=== PATIENT | male | born 2000 | race Caucasian/White ===

== ENCOUNTER 2022-12-24 15:43 | Emergency (ER) | payer MEDICAID, SELFPAY ==
[2022-12-24 15:51] VITALS: BP 114/59; PULSE 66; RESP 16; TEMP 37.3; O2SAT 100
--- NOTE | 2022-12-24 16:14 | ED.URI ---
HPI - URI/Sore Throat General Chief Complaint: Upper Respiratory Infection Stated Complaint: Sinus Congestion Time Seen by Provider: 12/24/22 16:14 Source: patient Mode of arrival: ambulatory Limitations: no limitations History of Present Illness HPI Narrative: 22-year-old male presents with complaint of nasal and sinus congestion. Reports some mild sinus pressure. Afebrile. No other symptoms today. Patient requesting work note. All systems reviewed and negative except as noted above. Related Data Home Medications Medication Instructions Recorded Confirmed dextroamphetamine-amphetamine 15 12/24/22 12/24/22 mg tablet Allergies Allergy/AdvReac Type Severity Reaction Status Date / Time No Known Allergies Allergy Verified 12/24/22 16:03 Review of Systems Review of Systems: CONSTITUTIONAL: Denies fever, chills, or sweats. EYES: Denies visual changes, redness, or discharge. ENT: Reports rhinorrhea, congestion. Denies sore throat, or otalgia. CARDIOVASCULAR: Denies chest pain, palpitations, or edema. RESPIRATORY: Denies cough or dyspnea. GASTROINTESTINAL: Denies abdominal pain, nausea, vomiting, or diarrhea. GENITOURINARY: Denies dysuria or hematuria. SKIN: Denies rash or itching. MUSCULOSKELETAL: Denies back pain, joint pain, or myalgia. NEUROLOGIC: Denies headache, numbness, or weakness. PSYCHIATRIC: Denies anxiety or depression. All other systems reviewed are negative, except as documented in HPI. PMFSH Comments At time of signature, agree with nursing past medical, surgical, social and family history. There is no relevant family history pertinent to the presenting complaint. Exam Narrative: GENERAL: This is a well-nourished, well-developed patient, in no apparent distress. HEAD: normocephalic, atraumatic. EYES: PERRL. Sclera clear/white. Vision is grossly intact. EARS: External ears normal, auditory canals clear and without drainage, TMs normal without perforation. Hearing grossly intact. NOSE: External nose normal with mild congestion, clear nasal drainage, erythema and swelling to bilateral nares. THROAT: Mucous membranes moist, posterior pharynx clear. NECK: Neck supple, non-tender without lymphadenopathy, masses or thyromegaly. CARDIOVASCULAR: Regular rate and rhythm without murmurs, gallops, or rubs. RESPIRATORY: Clear to auscultation. Breath sounds equal bilaterally. No wheezes, rales, or rhonchi. SKIN: warm, Dry, intact with no suspicious lesions or rash, good texture and turgor. NEURO: awake, alert, and oriented to person, place and time. There were no obvious focal neurologic abnormalities. EXTREMITIES: No joint tenderness, effusion, or edema noted. Course Course Level of Care: Express Care Visit Vital Signs Vital signs: Vital Signs Temperature 37.3 C 12/24/22 15:51 Pulse Rate 66 12/24/22 15:51 Respiratory Rate 16 12/24/22 15:51 Blood Pressure 114/59 L 12/24/22 15:51 Pulse Oximetry 100 12/24/22 15:51 Oxygen Delivery Room Air 12/24/22 15:51 Temperature 37.3 C 12/24/22 15:51 Pulse Rate 66 12/24/22 15:51 Respiratory Rate 16 12/24/22 15:51 Blood Pressure 114/59 L 12/24/22 15:51 Pulse Oximetry 100 12/24/22 15:51 Oxygen Delivery Room Air 12/24/22 15:51 Reviewed MDM - URI/Sore Throat MDM Narrative Medical decision making narrative: Patient is aware of diagnosis, understands and agrees to treatment plan. Anticipatory guidance given. Patient agrees to follow-up as directed and is aware of reasons to seek care at the emergency department. Portions of this record may have been created with voice recognition software Differential Diagnosis Differential diagnosis: Likely sinusitis Discharge Plan Discharge Clinical Impression: Acute viral sinusitis Patient Disposition: Home, Self-Care Condition: Stable Instructions: Sinusitis (ED) Additional Instructions: Take medications as prescribed to treat nasal and sinus congestion.
== END 2022-12-24 16:28 | disposition home or self-care (01) ==
PROVIDERS: Emergency Provider Nurse Practitioner Family
DX: J01.90 Acute sinusitis, unspecified (principal)
CPT/HCPCS: 99213; G0463